=== PATIENT | male | born 1965 | race Two or more races ===

== ENCOUNTER 2024-11-12 19:45 | Emergency (ER) | payer BC ==
[~2024-11-12] VITALS: Ht 172.7 cm; Wt 73.5 kg
[2024-11-12] MEDS ORDERED: CHILDREN'S ASPI81 MG PO (20:08)
[2024-11-12] MEDS ORDERED: LANTUS SOL100 UNIT/1 (20:09)
[2024-11-12] MEDS ORDERED: DICLOFENAC SODI75 MG PO (22:55)
[2024-11-12] MEDS ORDERED: NORFLEX100MG PO (22:55)
[2024-11-12] MEDS ORDERED: KETOROLAC TROMETHAMINE 60 MG VIAL IM ONE ×2 (23:00→23:26)
[2024-11-12] MEDS ORDERED: ORPHENADRINE CITRATE 30 MG/ML AMPUL IM ONE (23:00)
[2024-11-12] MEDS ORDERED: ORPHENADRINE CITRATE 30 MG/ML AMPUL ONE (23:26)
== END 2024-11-12 23:50 | disposition home or self-care (01) ==
LOC: ER 19:45
DX: T14.8XXA Other injury of unspecified body region, initial encounter (principal); W18.39XA Other fall on same level, initial encounter; Y93.89 Activity, other specified; Y92.89 Other specified places as the place of occurrence of the external cause; Y99.9 Unspecified external cause status; M54.50 Low back pain, unspecified; E11.9 Type 2 diabetes mellitus without complications; Z79.4 Long term (current) use of insulin; I10 Essential (primary) hypertension